=== PATIENT | male | born 1960 | race Caucasian/White ===

== ENCOUNTER 2020-04-13 11:38 | Emergency (ER) | payer BC, SELFPAY ==
[2020-04-13 11:43] VITALS: PULSE 65; RESP 16; TEMP 36.9; O2SAT 98; BMI 28.8
--- NOTE | 2020-04-13 11:45 | HMH.EDUTC ---
[facility] [place] Disposition Clinical Impression: Exposure to COVID-19 virus Disposition: Home, Self-Care Condition on Discharge: Good Instructions: Preventing the Spread of Coronavirus Discharge Instructions Additional Instructions: Drink plenty of fluids. Take tylenol or ibuprofen for pain or fever. Take the medications as directed. Follow up with your regular doctor. GO TO THE ER FOR ANY WORSENING SYMPTOMS Referrals: Rodriguez Velazquez [Primary Care Provider] - Time of Disposition: 11:46 Medical Decision Making - Medical Records Medical records reviewed: No: I reviewed the patient's medical records. - Charlie Inquiry Pt receiving controlled substance: No Vital Signs: 04/13/20 11:43 Temperature 98.5 F Temperature Source Oral Pulse Rate [Right] 65 Respiratory Rate 16 02 Sat by Pulse Oximetry 98 Oxygen Delivery Method Room Air Orders (Tests/Meds): ORDERS Category Date Time Status Covid-19 Nasal PCR ([facility]) Routine Lab 04/13/20 11:39 Ordered [facility] [place] HPI - General Stated complaint: covid test Time Seen by Provider: 04/13/20 11:45 Mode of Arrival: Ambulatory Source of Information: Patient Limitations: No Limitations Description of Symptoms (Recalled from Triage Doc. by RN): pt had exposure to covid 7 days ago. Denies any symptoms HEENT Symptoms (Recalled from RN notes): No Resp Symptoms (Recalled from RN notes): No Skin Symptoms (Recalled from RN notes): No MS Symptoms (Recalled from RN notes): No Functional Status (Recalled from RN notes): na - History of Present Illness Provider Complaint: He is here to be tested for covid-19. He was exposed to covid at his job. He denies any symptoms at this time. - Related Data Previous Rx's Medication Instructions Recorded cephALEXin [cephALEXin 500mg 500 mg PO Q8H #30 cap 10/09/17 capsule] Allergies Allergy/AdvReac Type Severity Reaction Status Date / Time promethazine [PROMETHAZINE] Allergy Intermediate VOMITING Verified 10/09/17 19:17 IV DYE Allergy Mild Uncoded 02/11/17 14:44 - Worker's Comp Is this a Worker's Comp case?: No [facility] History - Hepatitis A Screen Drug use history?: No High risk sexual behaviors?: No History of sexually transmitted infection?: No Currently employed?: No Childcare worker?: No Do you have indoor plumbing?: Yes Do you have electricity?: Yes Attestation statement:: This patient has been screened for Hepatitis A risk factors. I have reviewed the patient's past medical history: Yes - Social History Alcohol Intake: never ROS Obtained: Yes All systems reviewed & no additional complaints - Constitutional Constitutional: Reports system reviewed and no additional complaints, except as docu - Eyes Eyes: Reports system reviewed and no additional complaints, except as docu - ENT Ears, Nose, Mouth, and Throat: Reports system reviewed and no additional complaints, except as docu - Cardiovascular Cardiovascular: Reports system reviewed and no additional complaints, except as docu - Respiratory Respiratory: Reports system reviewed and no additional complaints, except as docu - Gastrointestinal Gastrointestingal: Reports: system reviewed and no additional complaints, except as docu Physical Exam - General General appearance: alert, in no apparent distress - Head Head exam: atraumatic, normocephalic, normal inspection - Eye Eye exam: Present: normal appearance, PERRL, EOMI - ENT ENT exam: Present: normal exam, normal oropharynx, mucous membranes moist, TM's normal bilaterally, normal external ear exam - Neck Neck exam: Present: normal inspection, full ROM, trachea midline. Absent: meningismus, lymphadenopathy - Chest Chest inspection: Present: normal inspection, symmetric chest wall rise. Absent: tenderness - Respiratory Respiratory exam: Present: normal lung sounds bilaterally. Absent: respiratory distress - Cardiovascular Cardiovascular exam: Present: regular rate, normal
[2020-04-13 11:48] VITALS: BP 170/95; PULSE 65; RESP 16; TEMP 36.6; O2SAT 98
== END 2020-04-13 11:50 | disposition home or self-care (01) ==
PROVIDERS: Emergency Provider Nurse Practitioner Family; PCP Family Medicine
DX: Z20.822 Contact with and (suspected) exposure to COVID-19 (principal)
CPT/HCPCS: 99202; G0463; U0003

== ENCOUNTER → 2021-02-25 09:06 | Outpatient (CLI) | payer BC, SELFPAY | PROVIDERS: PCP Family Medicine; Visit Provider Nurse Practitioner Family | DX: U07.1 COVID-19 (principal) | CPT/HCPCS: C9803; U0003; U0005 ==

== ENCOUNTER 2021-12-13 10:20 | Emergency (ER) | payer BC, SELFPAY ==
[2021-12-13 10:41] VITALS: BP 146/76; PULSE 62; RESP 18; TEMP 36.8; O2SAT 97; BMI 27.2
--- NOTE | 2021-12-13 10:47 | EXP.UTC ---
Discharge Plan Disposition Patient Disposition: Home, Self-Care Condition: Good Prescriptions Prescriptions: New amoxicillin-pot clavulanate 875-125 mg Tablet 1 tab PO Q12H Qty: 20 0RF No Action atorvastatin 40 mg tablet 40 mg PO DAILY Label Comments: TAKE 1 TABLET BY MOUTH EVERY DAY lisinopril 20 mg tablet 10 mg PO BID Label Comments: TAKE 1 TABLET BY MOUTH TWICE A DAY amlodipine 10 mg tablet 10 mg PO BID Label Comments: TAKE 1/2 TABLET TWICE DAILY. HOLD NEXT DOSE IF SBP < 110. diclofenac sodium 75 mg tablet,delayed release (DR/EC) 75 mg PO BID Label Comments: TAKE 1 TABLET BY MOUTH TWICE A DAY prasugrel 10 mg tablet 10 mg PO DAILY Label Comments: TAKE 1 TABLET BY MOUTH EVERY DAY cephalexin 500 MG capsule 500 mg PO Q8H Qty: 30 0RF Referrals Follow up/Referrals: Rodriguez Velazquez [Primary Care Provider] - See instructions Activity Restrictions/Add. Instructions Additional Instructions/Restrictions: Stop taking the Amoxicillin and start the Augmentin Return if needed Warm salt water gargles may help to clear your throat and help with throat irritation Straight to ER if any life threatening symptoms Clinical Impressions Clinical Impression: Sinusitis Qualifiers: Sinusitis location: unspecified location Chronicity: unspecified Qualified Code(s): J32.9 - Chronic sinusitis, unspecified Instructions Patient Instructions: Sinusitis, DI for Sinusitis Discharge ED Provider: Jackelin Castellano [facility] [place] HPI General Stated complaint: sinus pressure Time Seen by Provider: 12/13/21 10:47 History of Present Illness Provider Complaint: Patient states that he feels like he may have a sinus infection States that about this time every year he gets a sinus infection and has to get antibiotics States that he is having pain and pressure that is worse on the left side States that today his sinuses felt full and pressure behind his eyes so he came in to get checked out States that his PCP is out of town and someone sent him in some medication but it wasnt what he usually takes so he didnt get it Related Data Home Medications Medication Instructions Recorded Confirmed amlodipine 10 mg tablet 10 mg PO BID High blood pressure 12/13/21 12/13/21 atorvastatin 40 mg tablet 40 mg PO DAILY High cholesterol 12/13/21 12/13/21 diclofenac sodium 75 mg 75 mg PO BID . 12/13/21 12/13/21 tablet,delayed release lisinopril 20 mg tablet 10 mg PO BID High blood pressure 12/13/21 12/13/21 prasugrel 10 mg tablet 10 mg PO DAILY . 12/13/21 12/13/21 Previous Rx's Medication Instructions Recorded cephalexin 500 mg capsule 500 mg PO Q8H #30 caps 10/09/17 amoxicillin 875 mg-potassium 1 tab PO Q12H #20 tabs 12/13/21 clavulanate 125 mg tablet Allergies Allergy/AdvReac Type Severity Reaction Status Date / Time promethazine [PROMETHAZINE] Allergy Intermediate VOMITING Verified 12/13/21 10:52 IV DYE Allergy Mild Uncoded [facility]17 [facility] Social History alcohol intake: never Travel in the last 8 weeks: None ROS Obtained: Yes All systems reviewed & no additional complaints except as documented and Yes Systems reviewed as appropriate & no additional complaints except as documented Constitutional Constitutional: Reports system reviewed and no additional complaints, except as documented and Reports as per HPI ENT Ears, Nose, Mouth, and Throat: Reports system reviewed and no additional complaints, except as documented, Reports as per HPI, Reports sinus pain and Reports sinus pressure Cardiovascular Cardiovascular: Reports system reviewed and no additional complaints, except as documented and Reports as per HPI Physical Exam General General appearance: alert and in no apparent distress Expanded ENT Exam Nose exam: Present sinus tenderness Respiratory Respiratory exam: Present normal lung sounds bilaterally;
[2021-12-13 11:13] VITALS: BP 146/76; PULSE 62; RESP 18; TEMP 36.8
== END 2021-12-13 11:14 | disposition home or self-care (01) ==
PROVIDERS: Emergency Provider Nurse Practitioner; PCP Family Medicine
DX: J32.9 Chronic sinusitis, unspecified (principal)
CPT/HCPCS: 96372; 99212; G0463

== ENCOUNTER 2022-02-22 15:32 | Emergency (ER) | payer BC, SELFPAY ==
[2022-02-22 16:43] VITALS: BP 132/77; PULSE 89; RESP 16; TEMP 37.3; O2SAT 96; BMI 29.7
[2022-02-22 16:56] LABS: UTC Influenza A Antigen Negative (Negative); UTC Strep Screen (Rapid) Negative (Negative)
[2022-02-22 16:57] LABS: UTC Influenza B Antigen Negative (Negative)
--- NOTE | 2022-02-22 17:11 | EXP.UTC ---
Discharge Plan Disposition Patient Disposition: Home, Self-Care Condition: Good Prescriptions Prescriptions: New ondansetron 4 mg tablet,disintegrating 4 mg PO Q8H PRN (Reason: nausea and vomiting) Qty: 10 0RF benzonatate 100 mg capsule 100 mg PO TID PRN (Reason: cough) Qty: 30 0RF No Action atorvastatin 40 mg tablet 40 mg PO DAILY Label Comments: TAKE 1 TABLET BY MOUTH EVERY DAY lisinopril 20 mg tablet 10 mg PO BID Label Comments: TAKE 1 TABLET BY MOUTH TWICE A DAY amlodipine 10 mg tablet 10 mg PO BID Label Comments: TAKE 1/2 TABLET TWICE DAILY. HOLD NEXT DOSE IF SBP < 110. diclofenac sodium 75 mg tablet,delayed release (DR/EC) 75 mg PO BID Label Comments: TAKE 1 TABLET BY MOUTH TWICE A DAY prasugrel 10 mg tablet 10 mg PO DAILY Label Comments: TAKE 1 TABLET BY MOUTH EVERY DAY cephalexin 500 MG capsule 500 mg PO Q8H Qty: 30 0RF amoxicillin-pot clavulanate 875-125 mg tablet 1 tab PO Q12H Referrals Follow up/Referrals: Rodriguez Velazquez [Primary Care Provider] - See instructions Activity Restrictions/Add. Instructions Additional Instructions/Restrictions: *Monitor Temp, Over the counter Motrin or Tylenol as directed/as needed Tylenol every 4 hours and Motrin every 6 hours (as long as your family doctor has told you that you can take it) for fever or pain. and straight to ER if unable to lower temp less than 101.0 after medication given *Warm salt water gargles may help to soothe the throat *Throat Lozenges? *Warm fluids like tea with honey may help to soothe the throat? *Sleep elevated *Humidifier/Vaporizer Your throat swab was sent for culture. Those results are typically sent to your primary care. Be sure to follow up in 2-3 days with your family doctor/primary care physician if no improvement so they can review those result and treat if necessary. If you don?t have a primary care doctor, I recommend you get one but in the mean time, you will have to return to a walk in clinic Follow up IMMEDIATELY for new or worsening symptoms or no Noticeable improvement over the next 48-72 hours. 911 for difficulty breathing or swallowing You were tested for today for Upper Respiratory Panel with COVID19 your test result should be back in the next 24-48 hours, you may check your results on the [facility] My Health Portal Make sure to take your Vitamins Vit. C Vit D and Zinc if you can take them Clinical Impressions Clinical Impression: Viral syndrome Instructions Patient Instructions: DI for Nausea -- Adult, DI for Fever (Symptom) -- Adult Discharge ED Provider: Jackelin Castell[place] [facility] [place] General Stated complaint: body aches, fever/chills, sore throat, cough Mode of Arrival: Ambulatory Source of Information: Patient Limitations: No Limitations Time Seen by Provider: 02/22/22 17:11 Description of Symptoms (Recalled from Triage Doc. by RN): pt comes in with c/o fever, sore throat, cough, vomitting, body aches, chills. symptoms began a few days ago HEENT Symptoms (Recalled from RN notes): Yes Resp Symptoms (Recalled from RN notes): Yes Skin Symptoms (Recalled from RN notes): No MS Symptoms (Recalled from RN notes): No Functional Status (Recalled from RN notes): n/a History of Present Illness Provider Complaint: Patient states that he recently traveled from [place] States that he has been having fever, chills, body aches, sore throat cough with N/V States that started a few days ago States that he recently had surgery on his right shoulder area but it has been fine no redness no swelling no drainage States that today he was still feeling achy all over and feeling like he had the flu so he came in to get checked States that he is currently on Augmentin for sinus infection Related Data Home Medications Medication Instructions Recorded Confirmed amlodipine 10 mg tablet 10 mg PO BID High blood pressure 12/13/21 02/22/22 at
[2022-02-22 17:29] LABS: Adenovirus,PCR Not Detected (NotDetected); Bordetella Pertussis Not Detected (NotDetected); Chlamydophila Pneumoniae, PCR Not Detected (NotDetected); Coronavirus 19, PCR Not Detected (NotDetected); Coronavirus 229E Not Detected (NotDetected); Coronavirus NL63 Not Detected (NotDetected); Coronavirus OC43 Not Detected (NotDetected); Coronovirus HKU1,PCR Not Detected (NotDetected); Human Metapneumovirus Not Detected (NotDetected); Influenza A, PCR Not Detected (NotDetected); Influenza AH1, PCR Not Detected (NotDetected); Influenza AH3,PCR Not Detected (NotDetected); Influenza B, PCR Not Detected (NotDetected); Mycoplasma Pneumoniae, PCR Not Detected (NotDetected); Parainfluenza 1, PCR Not Detected (NotDetected); Parainfluenza 2, PCR Not Detected (NotDetected); Parainfluenza 3, PCR Not Detected (NotDetected); Parainfluenza 4, PCR Not Detected (NotDetected); Respiratory Syncytial Virus Not Detected (NotDetected); Rhinovirus/Enterovirus Not Detected (NotDetected)
[2022-02-22 17:44] VITALS: BP 132/77; PULSE 89; RESP 16; TEMP 37.3
[2022-02-23 02:05] LABS: Influenza AH1, 2009 Detected (NotDetected)
== END 2022-02-22 17:49 | disposition home or self-care (01) ==
PROVIDERS: Emergency Provider Nurse Practitioner; PCP Family Medicine
DX: J10.1 Influenza due to other identified influenza virus with other respiratory manifestations (principal)
CPT/HCPCS: 87581; 87632; 87798; 87804; 87880; 99212; C9803; G0463; U0003; U0005